=== PATIENT | male | born 1935 | race Hispanic/Latino ===

== ENCOUNTER 2018-03-23 17:34 | Observation (INO) | payer MEDICARE ==
[2018-03-23 18:39] LABS: BASO # 0.1 K/uL (0.0-0.2); BASO % 0.4 % (0.0-2.0); EOS # 0.2 K/uL (0.0-0.7); EOS % 1.4 % (0.0-4.0); HEMOGLOBIN 15.5 g/dL (12.0-18.0); LYMPH # 2.4 K/uL (1.0-4.3); LYMPH % 17.4 % (20.0-40.0); MEAN CELL VOLUME 91.1 fl (80.0-94.0); MEAN CORPUSCULAR HEMOGLOBIN 30.7 pg (27.0-31.0); MEAN CORPUSCULAR HGB CONC 33.7 g/dL (33.0-37.0); MEAN PLATELET VOLUME 10.2 fl (7.2-11.7); MONO # 0.8 K/uL (0.0-0.8); MONO % 5.6 % (0.0-10.0); NEUT # 10.3 K/uL (1.8-7.0); NEUT % 75.2 % (50.0-75.0); RBC 5.06 Mil/uL (4.40-5.90); RED CELL DISTRIBUTION WIDTH 14.3 % (11.5-14.5); WHITE BLOOD COUNT 13.8 K/uL (4.8-10.8)
[2018-03-23 18:45] LABS: INR 1.1; PROTHROMBIN TIME 12.6 Seconds (9.8-13.1)
[2018-03-23] MEDS ORDERED: Sodium Chloride 0.9% 500 ML IV STA (18:45)
[2018-03-23 18:46] LABS: VENOUS BLOOD GAS PCO2 44 mmHg (40-60); VENOUS BLOOD GAS PO2 38 mm/Hg (30-55); VENOUS BLOOD PH 7.44 (7.32-7.43)
[2018-03-23 18:47] LABS: PARTIAL THROMBOPLASTIN TIME 35.9 Seconds (25.6-37.1)
[2018-03-23 18:48] LABS: ALB/GLOB RATIO 1.5 (1.0-2.1); ALBUMIN 4.3 g/dL (3.5-5.0); ALT/SGPT 45 U/L (21-72); AST/SGOT 30 U/L (17-59); BLOOD UREA NITROGEN 19 mg/dl (9-20); CALCIUM 9.2 mg/dL (8.4-10.2); GFR NON-AFRICAN AMERICAN 58
--- NOTE | 2018-03-23 18:57 | ED PDOC ---
HPI: General Adult Time Seen by Provider: 03/23/18 18:03 Chief Complaint (Nursing): Fever Chief Complaint (Provider): Fever History Per: Patient History/Exam Limitations: no limitations Onset/Duration Of Symptoms: Days Current Symptoms Are (Timing): Still Present Additional Complaint(s): 83 year old male presents to the ED for an evaluation of a fever onset today. Patient temperature at home was 101F and he called his PMD who referred him to the ED. He also has a cough for several months which is not new or has not changed. Patient also has sore throat. He denies headache, urinary symptoms, vomiting, diarrhea or abdominal pain. PMD: Kevin Hutchins Past Medical History Reviewed: Historical Data, Nursing Documentation, Vital Signs Vital Signs: Last Vital Signs Temp 98.2 F 03/24/18 07:34 Pulse 97 H 03/24/18 09:27 Resp 19 03/24/18 07:34 BP 120/55 L 03/24/18 09:27 Pulse Ox 95 03/24/18 07:34 - Medical History PMH: Asthma, HTN, Hypercholesterolemia, Hyperlipidemia - Family History Family History: States: Unknown Family Hx - Home Medications Home Medications: Ambulatory Orders Medication Instructions Recorded Allopurinol [Zyloprim] 100 mg PO DAILY 03/23/18 Aspirin [Aspirin Chewable] 81 mg PO DAILY 03/23/18 Atorvastatin [Lipitor] 20 mg PO DAILY 03/23/18 Calcium Acetate [Phoslo] 1 tab PO HS 03/23/18 Cholecalciferol [Vitamin D 1000 IU] 1 tab PO DAILY 03/23/18 Clopidogrel [Plavix] 75 mg PO DAILY 03/23/18 Fluticasone/Vilanterol [Breo 1 inh INH DAILY 03/23/18 Ellipta 200-25 Mcg INH] Metoprolol Succinate [Metoprolol 25 mg PO DAILY 03/23/18 Succinate] Multivit-Mins/Iron/Folic/Lycop 1 tab PO DAILY 03/23/18 [Centrum Men's Tablet] Pantoprazole [Protonix EC Tab] 40 mg PO BID 03/23/18 Potassium Chloride [Klor-Con M10] 10 meq PO BID 03/23/18 amLODIPine [Norvasc] 10 mg PO HS 03/23/18 - Allergies Allergies/Adverse Reactions: Allergies Allergy/AdvReac Type Severity Reaction Status Date / Time No Known Allergies Allergy Verified 03/23/18 17:38 Review of Systems ROS Statement: Except As Marked, All Systems Reviewed And Found Negative Constitutional: Positive for: Fever ENT: Positive for: Throat Pain Respiratory: Positive for: Cough Gastrointestinal: Negative for: Nausea, Vomiting, Abdominal Pain, Diarrhea Genitourinary Male: Negative for: Dysuria, Frequency, Incontinence Neurological: Negative for: Headache Physical Exam - Reviewed Nursing Documentation Reviewed: Yes Vital Signs Reviewed: Yes - Physical Exam Appears: Positive for: Well, Non-toxic, No Acute Distress Head Exam: Positive for: ATRAUMATIC, NORMAL INSPECTION, NORMOCEPHALIC Skin: Positive for: Normal Color, Warm, Dry Eye Exam: Positive for: EOMI, Normal appearance, PERRL ENT: Positive for: Normal ENT Inspection Neck: Positive for: Normal, Painless ROM, Supple. Negative for: Decreased ROM Cardiovascular/Chest: Positive for: Regular Rate, Rhythm. Negative for: Murmur Respiratory: Positive for: Normal Breath Sounds. Negative for: Decreased Breath Sounds, Wheezing, Respiratory Distress Gastrointestinal/Abdominal: Positive for: Normal Exam, Bowel Sounds, Soft. Negative for: Tenderness, Guarding, Rebound Back: Positive for: Normal Inspection. Negative for: L CVA Tenderness, R CVA Tenderness Extremity: Positive for: Normal ROM. Negative for: Tenderness, Pedal Edema, Deformity Neurologic/Psych: Positive for: Alert, Oriented (X3). Negative for: Motor/ Sensory Deficits - Laboratory Results Result Diagrams: 03/24/18 10:37 03/24/18 10:37 - ECG O2 Sat by Pulse Oximetry: 98 (RA) Pulse Ox Interpretation: Normal Medical Decision Making Medical Decision Making: Time: 1827 Initial Impression: fever Differential Diagnosis includes but is not limited to: pneumonia, UTI, sepsis Initial Plan: --Venous Blood Gas Shock Panel --EKG --CMP --Magnesium --Phosphorous --CBC w/ Differential --PTT --Prothrombin Time --Chest Portable [RAD] --Sodium Chloride 500mls/hr --Tylenol 650mg --Blood Culture --Urine Culture --It Security Architect --Urinalysis --Reevaluation Time: 1899 Patient signed out to Dr. Flores pending Chest X-ray, reevaluation and disposition Scribe Attestation: Documented by Kasey Bell, acting as a scribe for Nik Dawson MD Provider Scribe Attestation: All medical record entries made by the Scribe were at my direction and personally dictated by me. I have reviewed the chart and agree that the record accurately reflects my personal performance of the history, physical exam, medical decision making, and the department course for this patient. I have also personally directed, reviewed, and agree with the discharge instructions and disposition. Disposition - Clinical Impression Clinical Impression: Pneumonia - Patient ED Disposition Is Patient to be Admitted: No Counseled Patient/Family Regarding: Studies Performed, Diagnosis - Disposition Disposition: Transfer of Care Disposition Time: 19:00 Condition: STABLE Patient Signed Over To: Norberto Flores (pending chest x-ray, reevaluation, disposition)
[2018-03-23 19:10] LABS: URINE BILIRUBIN NEGATIVE (NEGATIVE); URINE BLOOD NEGATIVE (NEGATIVE); URINE CLARITY SLIGHTY-CLOUDY (Clear); URINE COLOR YELLOW (YELLOW); URINE GLUCOSE (UA) NEG (Normal); URINE LEUKOCYTE ESTERASE NEG Leu/uL (Negative); URINE PROTEIN NEGATIVE (NEGATIVE); URINE UROBILINOGEN 0.2-1.0 mg/dL (0.2-1.0)
--- NOTE | 2018-03-23 19:54 | ED PDOC ---
- Laboratory Results Result Diagrams: 03/23/18 18:36 03/23/18 18:36 - ECG O2 Sat by Pulse Oximetry: 98 (RA) Pulse Ox Interpretation: Normal Medical Decision Making Medical Decision Making: Time: 1899 Patient endorsed to me by Dr. Dawson pending chest x-ray, reevaluation and disposition Labs significant for mild leukocytosis and chest x-ray left sided infiltrate. Patient will be hospitalized as observation patient. Scribe Attestation: Documented by Kasey Bell, acting as a scribe for Norberto Flores MD Provider Scribe Attestation: All medical record entries made by the Scribe were at my direction and personally dictated by me. I have reviewed the chart and agree that the record accurately reflects my personal performance of the history, physical exam, medical decision making, and the department course for this patient. I have also personally directed, reviewed, and agree with the discharge instructions and disposition. Disposition Discussed With : Kevin Hutchins - Clinical Impression Clinical Impression: Pneumonia - POA Present On Arrival: None - Disposition Disposition: Hospitalized as Observation Patient Disposition Time: 21:00 Condition: STABLE
[2018-03-23] MEDS ORDERED: levoFLOXacin 500 mg in D5W 500 MG/100 ML BAG IVPB STA (20:27)
[2018-03-23] MEDS ORDERED: POTASSIUM CHLORIDE 10 MEQ PO SCH (23:30)
[2018-03-23] MEDS: Potassium Chloride 10 mEq ER Tab PO SCH (23:55)
[2018-03-24] MEDS: Sodium Chloride 0.9% 1,000 ML IV SCH ×2 (00:40→14:48)
--- NOTE | 2018-03-24 08:40 | RAD ---
Date of service: 03/23/2018 HISTORY: Sepsis Patient COMPARISON: No prior. FINDINGS: LUNGS: There are low lung volumes. There is mild pulmonary venous congestion. PLEURA: No significant pleural effusion identified, no pneumothorax apparent. CARDIOVASCULAR: Normal. OSSEOUS STRUCTURES: No significant abnormalities. VISUALIZED UPPER ABDOMEN: Normal. OTHER FINDINGS: None. IMPRESSION: No acute findings.
[2018-03-24] MEDS ORDERED: FLUTICASONE INH SCH (09:00)
[2018-03-24] MEDS ORDERED: LYCOP PO SCH (09:00)
[2018-03-24] MEDS ORDERED: VILANTEROL INH SCH (09:00)
[2018-03-24] MEDS ORDERED: IRON PO SCH (09:00)
[2018-03-24] MEDS ORDERED: FOLIC PO SCH (09:00)
[2018-03-24] MEDS ORDERED: MULTIVIT MINS PO SCH (09:00)
--- NOTE | 2018-03-24 09:12 | CARD ---
APPROVED REPORT Date of service: 03/23/2018 EKG Measurement Heart [id number] <Conclusion> Sinus rhythm with marked sinus arrhythmia with 1st degree AV block with premature supraventricular complexes Otherwise normal ECG
[2018-03-24] MEDS: Fluticasone-Salmeterol 250-50mcg Diskus IH SCH ×2 (09:24→21:28)
[2018-03-24] MEDS: levoFLOXacin 500 mg in D5W 500 MG/100 ML BAG IVPB SCH (09:25)
[2018-03-24] MEDS: Potassium Chloride 10 mEq ER Tab PO SCH ×2 (09:25→17:52)
[2018-03-24] MEDS: Pantoprazole 40 mg EC Tab PO SCH ×2 (09:26→17:52)
[2018-03-24] MEDS: Enoxaparin 40 mg Syringe SC SCH (09:26)
[2018-03-24] MEDS: Metoprolol Succinate 25 mg XL Tab PO SCH (09:27)
[2018-03-24] MEDS: Cholecalciferol 1,000 INTLU TAB PO SCH (09:27)
[2018-03-24] MEDS: Multivitamin With Minerals Tab PO SCH (09:27)
--- NOTE | 2018-03-24 10:11 | RAD ---
HISTORY: COMPARISON: 03/23/2018. TECHNIQUE: Chest PA and lateral FINDINGS: LINES AND TUBES: None. LUNG AND PLEURA: The lungs are well inflated and clear. No pleural effusion or pneumothorax. HEART AND MEDIASTINUM: The heart is not enlarged. The hilar and mediastinal contours are within normal limits. SKELETAL STRUCTURES: The bony structures are within normal limits for the patient's age. VISUALIZED UPPER ABDOMEN: Normal. OTHER FINDINGS: None. IMPRESSION: No acute findings.
[2018-03-24 10:49] LABS: BASO % 0.3 % (0.0-2.0); EOS # 0.3 K/uL (0.0-0.7); HEMOGLOBIN 14.3 g/dL (12.0-18.0); LYMPH # 2.1 K/uL (1.0-4.3); LYMPH % 14.3 % (20.0-40.0); MEAN CELL VOLUME 91.1 fl (80.0-94.0); MEAN PLATELET VOLUME 10.4 fl (7.2-11.7); MONO # 0.6 K/uL (0.0-0.8); MONO % 3.9 % (0.0-10.0); NEUT # 11.4 K/uL (1.8-7.0); NEUT % 79.5 % (50.0-75.0); RBC 4.6 Mil/uL (4.40-5.90); RED CELL DISTRIBUTION WIDTH 13.9 % (11.5-14.5); WHITE BLOOD COUNT 14.3 K/uL (4.8-10.8)
[2018-03-24 11:04] LABS: BLOOD UREA NITROGEN 17 mg/dl (9-20); CALCIUM 8.5 mg/dL (8.4-10.2); GFR NON-AFRICAN AMERICAN > 60
--- NOTE | 2018-03-24 12:41 | CP.PCM.HP ---
History of Present Illness - History of Present Illness History of Present Illness: 83 year old male presents to the ED with fever,productive cough. Patient temperature at home was 102, he c/o same general malaise and sore throat Present on Admission - Present on Admission Any Indicators Present on Admission: No Review of Systems - Constitutional Constitutional: Fatigue, Fever - EENT Eyes: As Per HPI Nose/Mouth/Throat: As Per HPI - Cardiovascular Cardiovascular: As Per HPI - Respiratory Respiratory: Cough - Gastrointestinal Gastrointestinal: As Per HPI - Musculoskeletal Musculoskeletal: As Per HPI - Neurological Neurological: As Per HPI - Psychiatric Psychiatric: As Per HPI - Endocrine Endocrine: As Per HPI Past Patient History - Past Medical History & Family History Past Medical History?: Yes - Past Social History Smoking Status: Former Smoker - CARDIAC Hx Hypercholesterolemia: Yes Hx Hypertension: Yes - PULMONARY Hx Asthma: Yes - NEUROLOGICAL Hx Neurological Disorder: No - HEENT Hx HEENT Problems: No - RENAL Hx Chronic Kidney Disease: Yes Hx Renal Failure: Yes - ENDOCRINE/METABOLIC Hx Endocrine Disorders: No - HEMATOLOGICAL/ONCOLOGICAL Hx Blood Disorders: No - INTEGUMENTARY Hx Dermatological Problems: No - MUSCULOSKELETAL/RHEUMATOLOGICAL Hx Musculoskeletal Disorders: No Hx Falls: No - GASTROINTESTINAL Hx Gastrointestinal Disorders: No - GENITOURINARY/GYNECOLOGICAL Hx Genitourinary Disorders: No - PSYCHIATRIC Hx Psychophysiologic Disorder: No Hx Substance Use: No - SURGICAL HISTORY Hx Surgeries: Yes Hx Herniorrhaphy: Yes (INGUINAL) - ANESTHESIA Hx Anesthesia: Yes Hx Anesthesia Reactions: No Meds Allergies/Adverse Reactions: Allergies Allergy/AdvReac Type Severity Reaction Status Date / Time No Known Allergies Allergy Verified 03/23/18 17:38 Physical Exam - Constitutional Appears: Chronically Ill - Head Exam Head Exam: ATRAUMATIC, NORMAL INSPECTION, NORMOCEPHALIC - Eye Exam Eye Exam: Normal appearance - ENT Exam ENT Exam: Mucous Membranes Dry - Neck Exam Neck exam: Positive for: Full Rom - Respiratory Exam Respiratory Exam: Rhonchi - Cardiovascular Exam Cardiovascular Exam: REGULAR RHYTHM, +S1, +S2 - GI/Abdominal Exam GI & Abdominal Exam: Normal Bowel Sounds - Extremities Exam Extremities exam: Positive for: normal inspection - Neurological Exam Neurological exam: Alert, CN II-XII Intact, Oriented x3 - Psychiatric Exam Psychiatric exam: Normal Affect - Skin Skin Exam: Normal Color Results - Vital Signs Recent Vital Signs: Last Vital Signs Temp 98.2 F 03/24/18 07:34 Pulse 97 H 03/24/18 09:27 Resp 19 03/24/18 07:34 BP 120/55 L 03/24/18 09:27 Pulse Ox 98 03/24/18 11:35 - Labs Result Diagrams: 03/24/18 10:37 03/24/18 10:37 Labs: Laboratory Results - last 24 hr 03/23/18 03/23/18 03/23/18 18:35 18:36 18:36 WBC 13.8 H RBC 5.06 Hgb 15.5 Hct 46.1 MCV 91.1 MCH 30.7 MCHC 33.7 RDW 14.3 Plt Count 162 MPV 10.2 Neut % (Auto) 75.2 H Lymph % (Auto) 17.4 L Gonzales % (Auto) 5.6 Eos % (Auto) 1.4 Baso % (Auto) 0.4 Neut # (Auto) 10.3 H Lymph # (Auto) 2.4 Gonzales # (Auto) 0.8 Eos # (Auto) 0.2 Baso # (Auto) 0.1 PT INR APTT pO2 38 VBG pH 7.44 H VBG pCO2 44 VBG HCO3 28.2 VBG Total CO2 31.3 H VBG O2 Sat (Calc) 64.3 VBG Base Excess 5.0 H VBG Potassium 3.9 Sodium 135.0 138 Chloride 103.0 102 Glucose 87 Lactate 1.4 FiO2 21.0 Potassium 3.9 Carbon Dioxide 28 Anion Gap 12 BUN 19 Creatinine 1.2 Est GFR ( Amer) > 60 Est GFR (Non-Af Amer) 58 Random Glucose 89 Calcium 9.2 Phosphorus 3.1 Magnesium 1.9 Total Bilirubin 1.1 AST 30 ALT 45 Alkaline Phosphatase 80 Total Protein 7.2 Albumin 4.3 Globulin 2.8 Albumin/Globulin Ratio 1.5 TSH 3rd Generation Venous Blood Potassium 3.9 Urine Color Urine Clarity Urine pH Ur Specific [place] Urine Protein Urine Glucose (UA) Urine Ketones Urine Blood Urine Nitrate Urine Bilirubin Urine Urobilinogen Ur Leukocyte Esterase Urine RBC (Auto) Urine Microscopic WBC Influenza Typ A,B (EIA) Grp A Beta Strep Ag 03/23/18 03/23/18 03/23/18 18:36 19:01 19:29 WBC RBC Hgb Hct MCV MCH MCHC RDW Plt Count MPV Neut % (Auto) Lymph % (Auto) Gonzales % (Auto) Eos % (Auto) Baso % (Auto) Neut # (Auto) Lymph # (Auto) Gonzales # (Auto) Eos # (Auto) Baso # (Auto) PT 12.6 INR 1.1 APTT 35.9 pO2 VBG pH VBG pCO2 VBG HCO3 VBG Total CO2 VBG O2 Sat (Calc) VBG Base Excess VBG Potassium Sodium Chloride Glucose Lactate FiO2 Potassium Carbon Dioxide Anion Gap BUN Creatinine Est GFR ( Amer) Est GFR (Non-Af Amer) Random Glucose Calcium Phosphorus Magnesium Total Bilirubin AST ALT Alkaline Phosphatase Total Protein Albumin Globulin Albumin/Globulin Ratio TSH 3rd Generation Venous Blood Potassium Urine Color Yellow Urine Clarity Slighty-cloudy Urine pH 6.0 Ur Specific [place] 1.012 Urine Protein Negative Urine Glucose (UA) Neg Urine Ketones Negative Urine Blood Negative Urine Nitrate Negative Urine Bilirubin Negative Urine Urobilinogen 0.2-1.0 Ur Leukocyte Esterase Neg Urine RBC (Auto) 1 Urine Microscopic WBC < 1 Influenza Typ A,B (EIA) Negative for flu a/b Grp A Beta Strep Ag 03/23/18 03/24/18 03/24/18 19:29 00:45 10:37 WBC 14.3 H RBC 4.60 Hgb 14.3 Hct 41.9 MCV 91.1 MCH 31.0 MCHC 34.0 RDW 13.9 Plt Count 157 MPV 10.4 Neut % (Auto) 79.5 H Lymph % (Auto) 14.3 L [place] % (Auto) 3.9 Eos % (Auto) 2.0 Baso % (Auto) 0.3 Neut # (Auto) 11.4 H Lymph # (Auto) 2.1 Gonzales # (Auto) 0.6 Eos # (Auto) 0.3 Baso # (Auto) 0.0 PT INR APTT pO2 VBG pH VBG pCO2 VBG HCO3 VBG Total CO2 VBG O2 Sat (Calc) VBG Base Excess VBG Potassium Sodium Chloride Glucose Lactate FiO2 Potassium Carbon Dioxide Anion Gap BUN Creatinine Est GFR ( Amer) Est GFR (Non-Af Amer) Random Glucose Calcium Phosphorus Magnesium Total Bilirubin AST ALT Alkaline Phosphatase Total Protein Albumin Globulin Albumin/Globulin Ratio TSH 3rd Generation 1.14 Venous Blood Potassium Urine Color Urine Clarity Urine pH Ur Specific [place] Urine Protein Urine Glucose (UA) Urine Ketones Urine Blood Urine Nitrate Urine Bilirubin Urine Urobilinogen Ur Leukocyte Esterase Urine RBC (Auto) Urine Microscopic WBC Influenza Typ A,B (EIA) Grp A Beta Strep Ag Negative 03/24/18 10:37 WBC RBC Hgb Hct MCV MCH MCHC RDW Plt Count MPV Neut % (Auto) Lymph % (Auto) [place] % (Auto) Eos % (Auto) Baso % (Auto) Neut # (Auto) Lymph # (Auto) [place] # (Auto) Eos # (Auto) Baso # (Auto) PT INR APTT pO2 VBG pH VBG pCO2 VBG HCO3 VBG Total CO2 VBG O2 Sat (Calc) VBG Base Excess VBG Potassium Sodium 136 Chloride 100 Glucose Lactate FiO2 Potassium 3.6 Carbon Dioxide 27 Anion Gap 13 BUN 17 Creatinine 1.1 Est GFR ( Amer) > 60 Est GFR (Non-Af Amer) > 60 Random Glucose 194 H Calcium 8.5 Phosphorus Magnesium Total Bilirubin AST ALT Alkaline Phosphatase Total Protein Albumin Globulin Albumin/Globulin Ratio TSH 3rd Generation Venous Blood Potassium Urine Color Urine Clarity Urine pH Ur Specific [place] Urine Protein Urine Glucose (UA) Urine Ketones Urine Blood Urine Nitrate Urine Bilirubin Urine Urobilinogen Ur Leukocyte Esterase Urine RBC (Auto) Urine Microscopic WBC Influenza Typ A,B (EIA) Grp A Beta Strep Ag Assessment & Plan (1) Bronchitis Status: Acute (2) Pneumonia Status: Suspected (3) Fever Status: Acute (4) Cough Status: Acute - Assessment and Plan (Free Text) Plan: As per orders.
[2018-03-25 07:52] VITALS: BP 111/66; PULSE 88; RESP 20; TEMP 97.8; O2SAT 96
[2018-03-25 08:51] LABS: BASO # 0.1 K/uL (0.0-0.2); BASO % 0.4 % (0.0-2.0); EOS # 0.6 K/uL (0.0-0.7); EOS % 4.9 % (0.0-4.0); HEMOGLOBIN 15.1 g/dL (12.0-18.0); LYMPH # 3.2 K/uL (1.0-4.3); LYMPH % 24.1 % (20.0-40.0); MEAN CELL VOLUME 90.8 fl (80.0-94.0); MEAN CORPUSCULAR HEMOGLOBIN 30.6 pg (27.0-31.0); MEAN CORPUSCULAR HGB CONC 33.7 g/dL (33.0-37.0); MEAN PLATELET VOLUME 10.1 fl (7.2-11.7); MONO % 7.5 % (0.0-10.0); NEUT # 8.4 K/uL (1.8-7.0); NEUT % 63.1 % (50.0-75.0); RBC 4.92 Mil/uL (4.40-5.90); RED CELL DISTRIBUTION WIDTH 14.3 % (11.5-14.5); WHITE BLOOD COUNT 13.3 K/uL (4.8-10.8)
[2018-03-25] MEDS: Potassium Chloride 10 mEq ER Tab PO SCH (08:57)
[2018-03-25] MEDS: Fluticasone-Salmeterol 250-50mcg Diskus IH SCH (08:57)
[2018-03-25] MEDS: Multivitamin With Minerals Tab PO SCH (08:57)
[2018-03-25] MEDS: Pantoprazole 40 mg EC Tab PO SCH (08:57)
[2018-03-25] MEDS: Cholecalciferol 1,000 INTLU TAB PO SCH (08:57)
[2018-03-25] MEDS: Metoprolol Succinate 25 mg XL Tab PO SCH (08:58)
[2018-03-25] MEDS: Enoxaparin 40 mg Syringe SC SCH (08:58)
[2018-03-25] MEDS: levoFLOXacin 500 mg in D5W 500 MG/100 ML BAG IVPB SCH (08:59)
[2018-03-25 09:01] LABS: BLOOD UREA NITROGEN 14 mg/dl (9-20); CALCIUM 8.8 mg/dL (8.4-10.2); GFR NON-AFRICAN AMERICAN 58
--- NOTE | 2018-03-25 11:18 | CP.PCM.PN ---
Subjective - Date & Time of Evaluation Date of Evaluation: 03/25/18 Time of Evaluation: 11:19 - Subjective Subjective: Patient comfortable not in distress, afebrile, no CP, no SOB, stable Will DC home on PO meds with f/u in my office in 5 days Objective - Vital Signs/Intake and Output Vital Signs (last 24 hours): Temp Pulse Resp BP Pulse Ox 97.8 F 88 20 111/66 96 03/25/18 07:51 03/25/18 08:58 03/25/18 07:51 03/25/18 08:58 03/25/18 07:51 - Medications Medications: Current Medications Allopurinol (Zyloprim) 100 mg PO DAILY [facility] Last Admin: 03/25/18 08:58 Dose: 100 mg Amlodipine Besylate (Norvasc) 10 mg PO HS [facility] Last Admin: 03/24/18 21:28 Dose: 10 mg Aspirin (Aspirin Chewable) 81 mg PO DAILY [facility] Last Admin: 03/25/18 08:58 Dose: 81 mg Atorvastatin Calcium (Lipitor) 20 mg PO DAILY [facility] Last Admin: 03/25/18 08:58 Dose: 20 mg Calcium Acetate (Phoslo) 667 mg PO HS [facility] Last Admin: 03/24/18 21:28 Dose: 667 mg Cholecalciferol (Vitamin D) 1,000 intlu PO DAILY [facility] Last Admin: 03/25/18 08:57 Dose: 1,000 intlu Clopidogrel Bisulfate (Plavix) 75 mg PO DAILY [facility] Last Admin: 03/25/18 08:57 Dose: 75 mg Enoxaparin Sodium (Lovenox) 40 mg SC DAILY [facility] PRN Reason: Protocol Last Admin: 03/25/18 08:58 Dose: 40 mg Levofloxacin/Dextrose (Levaquin 500mg) 500 mg in 100 mls @ 100 mls/hr IVPB DAILY [facility] PRN Reason: Protocol Last Admin: 03/25/18 08:59 Dose: 100 mls/hr Metoprolol Succinate (Toprol Xl) 25 mg PO DAILY [facility] Last Admin: 03/25/18 08:58 Dose: 25 mg Multivitamins/Minerals (Therapeutic-M Tab) 1 tab PO DAILY [facility] Last Admin: 03/25/18 08:57 Dose: 1 tab Pantoprazole Sodium (Protonix Ec Tab) 40 mg PO BID [facility] Last Admin: 03/25/18 08:57 Dose: 40 mg Potassium Chloride (Klor-Con 10) 10 meq PO BID [facility] Last Admin: 03/25/18 08:57 Dose: 10 meq Fluticasone/Salmeterol (Advair Diskus 250/50) 1 puff IH Q12 LAW Last Admin: 03/25/18 08:57 Dose: 1 puff - Labs Labs: 03/25/18 08:36 03/25/18 08:36 PT 12.6 Seconds (9.8-13.1) 03/23/18 18:36 INR 1.1 03/23/18 18:36 APTT 35.9 Seconds (25.6-37.1) 03/23/18 18:36 - Constitutional Appears: No Acute Distress - Head Exam Head Exam: ATRAUMATIC, NORMAL INSPECTION, NORMOCEPHALIC - Eye Exam Eye Exam: Normal appearance - ENT Exam ENT Exam: Mucous Membranes Moist - Neck Exam Neck Exam: Full ROM - Respiratory Exam Respiratory Exam: Clear to Ausculation Bilateral - Cardiovascular Exam Cardiovascular Exam: REGULAR RHYTHM, +S1, +S2 - GI/Abdominal Exam GI & Abdominal Exam: Soft, Normal Bowel Sounds - Extremities Exam Extremities Exam: Full ROM, Normal Inspection - Neurological Exam Neurological Exam: Alert, Awake, CN II-XII Intact, Normal Gait, Oriented x3 - Psychiatric Exam Psychiatric exam: Normal Affect - Skin Skin Exam: Normal Color Assessment and Plan (1) Bronchitis Status: Acute (2) Pneumonia Status: Ruled-out (3) Fever Status: Resolved (4) Cough Status: Resolved - Assessment and Plan (Free Text) Plan: [place] home
== END 2018-03-25 14:01 | disposition home or self-care (01) ==
LOC: H.ER 17:34 → H.ERHOLD 20:34 → H.MEDSURG1 22:20
PROVIDERS: ADMIT Internal Medicine; ATTEND Internal Medicine
DX: J20.9 Acute bronchitis, unspecified (principal); I10 Essential (primary) hypertension; E78.5 Hyperlipidemia, unspecified; E78.00 Pure hypercholesterolemia, unspecified; J45.909 Unspecified asthma, uncomplicated; Z87.891 Personal history of nicotine dependence; Z79.02 Long term (current) use of antithrombotics/antiplatelets
CPT/HCPCS: 36415; 71045; 71046; 80048; 80053; 81003; 82803; 83735; 84100; 84443; 85025; 85610; 85730; 86738; 87040; 87070; 87086; 87430; 87804; 93005; 99284; G0378; J1650; J7030